=== PATIENT | male | born 1970 | race Caucasian/White ===

== ENCOUNTER 2024-10-05 11:12 | Inpatient (IN) | payer MEDICARE ==
[2024-10-05] MEDS ORDERED: MAGNESIUM HYDROXIDE 2,400 MG/30 ML CUP PO PRN (12:54)
[2024-10-05] MEDS ORDERED: ACETAMINOPHEN TAB 325 MG TAB PO PRN (12:54)
[2024-10-05] MEDS ORDERED: IBUPROFEN 600 MG TAB PO PRN (12:54)
[2024-10-05] MEDS ORDERED: MAG HYDROX/AL HYDROX/SIMETH 355 ML BOTTLE PO PRN (12:54)
[2024-10-05] MEDS ORDERED: HALOPERIDOL LACTATE 5 MG/ML 1 ML VIAL IM PRN (12:55)
[2024-10-05] MEDS ORDERED: LORazepam 2 MG/ML INJ IM PRN (12:55)
[2024-10-05] MEDS ORDERED: haloperidoL 5 MG TAB PO PRN (12:55)
[2024-10-05] MEDS: LORazepam 1 MG TAB PO PRN (15:26)
[2024-10-05] MEDS: HYDROcodone/APAP 5-325MG 1 EACH TAB PO PRN (16:11)
[2024-10-05] MEDS ORDERED: DEXTROSE 50% SYRINGE 50 ML IVP PRN ×2 (17:27)
[2024-10-05 17:30] LABS: Glucose,Whole Blood 305 mg/dL (70-110)
[2024-10-05] MEDS: INSULIN ASPART (NovoLOG) 100 UNIT/ML VIAL SQ SCH (17:46)
[2024-10-05] MEDS: metFORMIN 500 MG TAB PO SCH (17:48)
[2024-10-05] MEDS: NICOTINE GUM (POLACRILEX) 2 MG GUM BUCCAL PRN (18:54)
[2024-10-05] MEDS ORDERED: QUEtiapine 100 MG TAB PO SCH (21:00)
[2024-10-05 22:23] LABS: Glucose,Whole Blood 318 mg/dL (70-110)
[2024-10-06 07:30] LABS: Appearance,Urine Clear (Clear); Bilirubin,Urine Negative (Negative); Blood,Urine Negative (Negative); Color,Urine Colorless; Glucose,Urine (UA) 2+ (Negative); Ketones,Urine Negative (Negative); Leukocyte Esterase,Urine Negative (Negative); Nitrite,Urine Negative (Negative); Protein,Urine Negative (Negative); Specific Gravity,Urine 1.006 (1.001-1.035); Urobilinogen,Urine <2.0 mg/dL (<2.0)
[2024-10-06 07:49] LABS: Glucose,Whole Blood 217 mg/dL (70-110)
[2024-10-06 08:06] LABS: ALT 74 U/L (4-49); AST 51 U/L (17-59); African American GFR (CKD) >90 (>60 ml/min/1.73 sqM); Albumin 4.5 g/dL (3.5-5.0); Alkaline Phosphatase 97 U/L (38-126); Anion Gap 8 mmol/L; Blood Urea Nitrogen 10 mg/dL (9-20); Calcium 9.5 mg/dL (8.4-10.2); Carbon Dioxide 31 mmol/L (22-30); Chloride 97 mmol/L (98-107); Glucose 225 mg/dL (74-99); Non-African American GFR(CKD) >90 (>60 ml/min/1.73 sqM); Potassium 4.2 mmol/L (3.5-5.1); Sodium 136 mmol/L (137-145); Total Protein 7.6 g/dL (6.3-8.2)
[2024-10-06] MEDS: PARoxetine 10 MG TAB PO SCH (08:52)
[2024-10-06] MEDS: ARIPiprazole 5 MG TAB PO SCH (08:52)
[2024-10-06] MEDS ORDERED: SERTRALINE 100 MG TAB PO SCH (09:00)
[2024-10-06] MEDS: PARoxetine 10 MG TAB PO STA (11:37)
[2024-10-06 12:38] LABS: Glucose,Whole Blood 310 mg/dL (70-110)
[2024-10-06] MEDS ORDERED: hydrOXYzine HCL 25 MG TAB PO PRN (13:21)
--- NOTE | 2024-10-06 13:22 | P.HP ---
Psychiatric H&P - . H&P Date: 10/06/24 History & Physical: Allergies Allergy/AdvReac Type Severity Reaction Status Date / Time diphenhydramine Allergy Unknown Verified 10/05/24 12:14 From Benadryl pseudoephedrine Allergy Unknown Verified 10/05/24 12:14 From Sudafed quetiapine from Seroquel Allergy Unknown Verified 10/05/24 15:40 Vital Signs Temp 98.1 F 10/06/24 06:57 Pulse 86 10/06/24 06:57 Resp 18 10/06/24 06:57 BP 137/93 10/06/24 06:57 Pulse Ox 98 10/06/24 06:57 FiO2 Intake & Output 10/05/24 10/06/24 10/06/24 18:59 06:59 18:59 Weight 82.1 kg Laboratory Last Values Sodium 136 mmol/L (137-145) L 10/06/24 07:24 Potassium 4.2 mmol/L (3.5-5.1) 10/06/24 07:24 Chloride 97 mmol/L (98-107) L 10/06/24 07:24 Carbon Dioxide 31 mmol/L (22-30) H 10/06/24 07:24 Anion Gap 8 mmol/L 10/06/24 07:24 BUN 10 mg/dL (9-20) 10/06/24 07:24 Creatinine 0.84 mg/dL (0.66-1.25) 10/06/24 07:24 Est GFR (CKD-EPI)AfAm >90 (>60 ml/min/1.73 sqM) 10/06/24 07:24 Est GFR (CKD-EPI)NonAf >90 (>60 ml/min/1.73 sqM) 10/06/24 07:24 Glucose 225 mg/dL (74-99) H 10/06/24 07:24 POC Glucose (mg/dL) 310 mg/dL (70-110) H 10/06/24 12:36 POC Glu [employer] Pilot ID Satnam Whittaker 10/06/24 12:[address] Glu mg/dL 298 mg/dL 10/06/24 07:24 Hemoglobin A1c 12.0 % (<=6.0) H 10/06/24 07:24 Calcium 9.5 mg/dL (8.4-10.2) 10/06/24 07:24 Total Bilirubin 1.0 mg/dL (0.2-1.3) 10/06/24 07:24 AST 51 U/L (17-59) 10/06/24 07:24 ALT 74 U/L (4-49) H 10/06/24 07:24 Alkaline Phosphatase 97 U/L (38-126) 10/06/24 07:24 Total Protein 7.6 g/dL (6.3-8.2) 10/06/24 07:24 Albumin 4.5 g/dL (3.5-5.0) 10/06/24 07:24 TSH 3.500 mIU/L (0.465-4.680) 10/06/24 07:24 Urine Color Colorless 10/06/24 07:11 Urine Appearance Clear (Clear) 10/06/24 07:11 Urine pH 5.0 (5.0-8.0) 10/06/24 07:11 Ur Specific [place] 1.006 (1.001-1.035) 10/06/24 07:11 Urine Protein Negative (Negative) 10/06/24 07:11 Urine Glucose (UA) 2+ (Negative) H 10/06/24 07:11 Urine Ketones Negative (Negative) 10/06/24 07:11 Urine Blood Negative (Negative) 10/06/24 07:11 Urine Nitrite Negative (Negative) 10/06/24 07:11 Urine Bilirubin Negative (Negative) 10/06/24 07:11 Urine Urobilinogen <2.0 mg/dL (<2.0) 10/06/24 07:11 Ur Leukocyte Esterase Negative (Negative) 10/06/24 07:11 10/06/24 13:10 IDENTIFYING DATA: Patient is a 54-year-old single male, living with roommate and on disability CHIEF COMPLAINT: Suicidal ideations HPI: Patient presented to the hospital with worsening depression. EPS note states, "Transfer from [facility]. SI d/t finacial issues. Pt feels he is a threat to himself. He is not sleeping. No restraints. UDS neg. Labs were reviewed with pt has low platelets, According to [employer] pt runs from 85-118 in this year. Repeat BMP and CBC. Pt is DM and on sliding scale insulin lispro. Pts sugars are elevated runs 218, 289, 295, 391. VSS. Covid neg. UDS neg. Pt was given PO Ativan but this is a prescription for pt. No violence or aggression charted. Pt is having some knee pain, but able to complete all ADLs per charting and intake. No substance or ETOH use noted. Last etoh use was in 2018 per charting. Pts etoh was <10 on arrival to their [facility].". Patient seen and evaluated on the unit and was agreeable with speaking to comic writer in office. He states he has been dealing with depressive symptoms for the past 3 days that have worsened. Specifically he states experiencing sleep difficulties, anhedonia but denies any appetite or energy changes, hopelessness, concentration. He reports financial stressors and boredom as the primary triggers as he is "retired" and receives 1 check per month that must stretch the entire month. He states due to not working he is often bored and that this is what prompted the depression and suicidal thoughts. Patient denies any suicidal or homicidal ideations intent or plan. Reports anxiety directly related to financial stressors. At this time patient denies any auditory or visual hallucinations. Patient denies any flight of ideas racing thoughts and increased in goal directed behavior. Patient admits to using nicotine as needed PAST PSYCHIATRIC HISTORY: Patient has a history of depression, anxiety. Patient is currently prescribed Paxil 10 mg for the past year and he is also on Abilify 5 mg daily. He has tried Zoloft, trazodone, Seroquel previously. He reports "a few" inpatient hospitalizations, most recent reportedly in 2022 at [facility]. Patient denies any psychiatric outpatient follow-up. Patient denies any history of suicide attempts in the past. PMH: as per ER note ALLERGIES: as per EMR SUBSTANCE USE HISTORY: As per HPI FAMILY PSYCHIATRIC/SUBSTANCE USE HISTORY: Patient states his grandpa completed suicide SOCIAL HISTORY: Patient stays with a roommate, is single however has 2 daughters. He completed some college and is on disability. MENTAL STATUS EXAM: General Appearance: Patient appears to be stated age is alert, directable, and attempts to cooperate. Patient appears to have fair hygiene and grooming. He is balding Behavior: Patient is seated without any agitated behavior. Speech: Patient's speech is fluent and nonpressured. Mood/Affect: Patient reports their mood is depressed, affect is congruent and constricted. Suicidality/Homicidality: Patient denies having any homicidal ideation intent or plan. Denies any suicidal ideations intent or plan Perceptions: Patient denies any visual hallucinations and denies any auditory hallucinations Though content/process: There is no evidence of any delusional thought content and thought process is linear and logical. Memory and concentration: AOX3, grossly intact for the purposes of this session. Can spell "WORLD" backwards Judgment and insight: Fair STRENGTHS/WEAKNESSES: strength is that patient is resilient. Weakness is that patient has poor judgment and is impulsive INTELLECT: Average-below average IMPRESSIONS: Depression, unspecified Anxiety, unspecified Nicotine dependence PLAN: -Patient is admitted under voluntary status to MHU for stabilization of psychiatric symptoms and safety. Patient has signed adult voluntary form and medication consent and is placed in patient's chart. -Medications : Increase Paxil to 20 mg daily for depression/anxiety, start Remeron 7.5 mg at bedtime for sleep/mood, continue Abilify 5 mg daily for mood stabilization -Atarax and Haldol PRN for agitation/aggression -Patient was informed of the risks, benefits and side effects of the medication and patient verbally consented to taking the medications. Patient signed med consent form and was placed in chart. -Internal Medicine consult to perform medical evaluation and physical. -NRT -nicotine patch -SW on board for discharge planning. Encourage patient to participate in groups to work on coping skills.
[2024-10-06 17:38] LABS: Glucose,Whole Blood 229 mg/dL (70-110)
[2024-10-06] MEDS: MIRTAZAPINE 15 MG TAB PO SCH (19:59)
[2024-10-06 20:04] LABS: Glucose,Whole Blood 330 mg/dL (70-110)
[2024-10-07 06:51] VITALS: RESP 16
[2024-10-07 07:57] LABS: Glucose,Whole Blood 366 mg/dL (70-110)
[2024-10-07] MEDS: PARoxetine 20 MG TAB PO SCH (08:18)
[2024-10-07 12:05] VITALS: BMI 25.3
[2024-10-07 12:37] LABS: Glucose,Whole Blood 178 mg/dL (70-110)
--- NOTE | 2024-10-07 14:19 | P.CONS ---
History of Present Illness - Reason for Consult Consult date: 10/07/24 med management Requesting physician: Kenzie Irving - Chief Complaint depression - History of Present Illness Lucas is a 54-year-old male who presented to hospital for depression. The patient reports that he is a diabetic. He reports that his A1c was last checked a few months prior but reports he does not routinely get any lab work drawn. He reports that his PCP had discussed with him starting him on insulin. He reports that he feels of his most recent A1c was close to 8. He denies any history of high blood pressure. Past Medical History Past Medical History: Diabetes Mellitus, Hypertension Additional Past Medical History / Comment(s): Pt had right knee surgery but has to have another surgery soon. He needs a total knee replacement. History of Any Multi-Drug Resistant Organisms: None Reported Past Surgical History: Orthopedic Surgery Additional Past Surgical History / Comment(s): Right knee surgery Past Anesthesia/Blood Transfusion Reactions: No Reported Reaction Past Psychological History: No Psychological Hx Reported Smoking Status: Never smoker Past Alcohol Use History: None Reported Past Drug Use History: None Reported Medications and Allergies Home Medications Medication Instructions Recorded Confirmed Type ARIPiprazole [Abilify] 5 mg PO DAILY 10/05/24 10/05/24 History PARoxetine HCL [Paxil] 10 mg PO DAILY 10/05/24 10/05/24 History metFORMIN HCL [Glucophage] 1,000 mg PO BID 10/05/24 10/05/24 History traZODone HCL 100 mg PO HS 10/05/24 10/05/24 History Allergies Allergy/AdvReac Type Severity Reaction Status Date / Time diphenhydramine Allergy Unknown Verified 10/05/24 12:14 [From Benadryl] pseudoephedrine Allergy Unknown Verified 10/05/24 12:14 [From Sudafed] quetiapine [From Seroquel] Allergy Unknown Verified 10/05/24 15:40 Physical Exam Vitals: Vital Signs Temp Pulse Resp BP Pulse Ox 10/07/24 06:50 97.8 F 76 16 111/71 96 Intake and Output 10/06/24 10/07/24 10/07/24 22:59 06:59 14:59 Other: Weight 82.1 kg General: non toxic, no distress, male, appears stated age Derm: warm, dry Head: atraumatic, normocephalic, symmetric Eyes: EOMI, no lid lag, anicteric sclera, pupils equal round reactive to light ENT: Nose and ears atraumatic, no thrush, no pharyngeal erythema Neck: No thyromegaly, no cervical lymphadenopathy, trachea midline, supple Mouth: no lip lesion, mucus membranes moist Cardiovascular: S1S2 reg, no murmur, positive posterior tibial pulse bilateral, no edema Lungs: clear to ascultation bilateral, no ronchi, no rales, no wheeze, no accessory muscle use Abdominal: soft, nontender to palpation, no guarding, no appreciable organom egaly, normal bowel sounds Ext: no gross muscle atrophy, muscle strength muscle strength 5 out of 5 in all 4 extremities, no contractures Neuro: Moving all extremity spontaneously Psych: Calm Results CBC & Chem 7: 10/06/24 07:24 Labs: Abnormal Lab Results - Last 24 Hours (Table) 10/06/24 10/06/24 10/07/24 Range/Units 17:37 20:02 07:55 POC Glucose (mg/dL) 229 H 330 H 366 H (70-110) mg/dL 10/07/24 Range/Units 12:36 POC Glucose (mg/dL) 178 H (70-110) mg/dL Assessment and Plan Assessment: #) Dm2, appears to be poorly controlled given Am fasting blood glucose of 366. Continue metfomrin 1000 mg BID however add farxiga 5 mg daily. Continue low intensity sliding scale insulin while in inpatient [facility] and will f/u on a1c. I would be hesitant on discharging him on any long acting insulin, however pending a1c result may benefit from trulicity upon discharge from inpatient [facility] for optimal diabetic control. Check microalbumin and consider adding low dose acei/arb if evidence of microalbuminuria Thank you for allowing us to participate in the care of this patient. We will follow peripherally. Do not hesitate to contact us with questions. Someone can be reached from the [facility] hospitalist group at all hours of the day at [phone]. Time with Patient: Greater than 30
[2024-10-07] MEDS: DAPAGLIFLOZIN PROPANEDIOL 5 MG TABLET PO SCH (14:36)
--- NOTE | 2024-10-07 16:24 | P.PN ---
Progress Note - Text Interval History: Patient was seen in the hallway and was directable and agreeable to speak with service writer in the office. Reports having needed a "break from the environment" and attributes this to some of the improvement he is experienced in his mood. He is tolerating Paxil without any difficulty. His financial stress was one of the si gnificant challenges he faced prior to coming to the hospital and had been worrying about his circumstances. He described his mood as "really well" today and has been eating and finds to be Remeron helpful for sleep. At this time patient denies any suicidal or homicidal ideations, intent or plan. Patient denies any auditory, visual hallucinations and denies any paranoia or delusions. Patient denies any side effects from the medications and has been compliant with meds. We briefly discussed his elevated blood glucose which was 366 this morning; he explained that his PCP has plans to more aggressively manage his diabetes. Mental Status Exam: General Appearance: Patient appears to be stated age is alert, directable, and cooperative. Behavior: Patient is calmly seated without any agitated behavior. Speech: Patient's speech is fluent and nonpressured. Mood/Affect: Mood is "really well", affect is congruent and euthymic. Suicidality/Homicidality: Patient denies having any suicidal or homicidal ideation intent or plan. Perceptions: Patient denies any visual hallucinations and denies any auditory hallucinations Though content/process: There is no evidence of any delusional thought content and thought process is linear and goal-directed. Memory and concentration: AOX3, grossly intact for the purposes of this session Judgment and insight: Improving mildly Assessment: - Depression, unspecified - Anxiety, unspecified - Nicotine dependence PLAN: -Patient is admitted under voluntary status to MHU for stabilization of psychiatric symptoms and safety. Patient has signed adult voluntary form and medication consent and is placed in patient's chart. -Medications : - Continue Paxil 20 mg daily for depression/anxiety - Continue Remeron 7.5 mg at bedtime for sleep/mood - Continue Abilify 5 mg daily for mood stabilization -Atarax and Haldol PRN for agitation/aggression -Patient was informed of the risks, benefits and side effects of the medication and patient verbally consented to taking the medications. Patient signed med consent form and was placed in chart. -Internal Medicine consult to perform medical evaluation and physical. Completed today; patient's Diabetes management is being optimized. -NRT -nicotine patch -SW on board for discharge planning. Encourage patient to participate in groups to work on coping skills.
[2024-10-07 17:29] LABS: Glucose,Whole Blood 265 mg/dL (70-110)
[2024-10-07 20:12] LABS: Glucose,Whole Blood 216 mg/dL (70-110)
[2024-10-08 07:50] LABS: Glucose,Whole Blood 178 mg/dL (70-110)
[2024-10-08 11:44] LABS: Microalbumin Creatinine Ratio <32 mg/g Cr (0-30); Urine Creatinine 37.6 mg/dL (39.0-259.0)
[2024-10-08 12:36] LABS: Glucose,Whole Blood 177 mg/dL (70-110)
--- NOTE | 2024-10-08 14:18 | P.PN ---
Progress Note - Text Interval History: Patient was seen in the hallway and was directable and agreeable to speak with narrative writer in the office. Describes his mood today as "excellent." He slept well and said doesn't "think I need to stay much longer." He talked to a friend who is willing to give him some financial support while he awaits some anticipated income. Additionally, he is not as overwhelmed by his finances as he was prior to admission. He is looking forward to watching the [employer] play again, feels generally more upbeat about the future. Additionally, he has appreciated the addition of Remeron as it has improved his sleep. At this time patient denies any suicidal or homicidal ideations, intent, or plan. Patient denies any auditory, visual hallucinations and denies any paranoia or delusions. Patient denies any side effects from the medications and has been compliant with meds. Mental Status Exam: General Appearance: Patient appears to be stated age is alert, directable, and cooperative. Behavior: Patient is calmly seated without any agitated behavior. Speech: Patient's speech is fluent and nonpressured. Mood/Affect: Mood is "excellent", affect is congruent and euthymic, smiling. Bright. Suicidality/Homicidality: Patient denies having any suicidal or homicidal ideation intent or plan. Perceptions: Patient denies any visual hallucinations and denies any auditory hallucinations Though content/process: There is no evidence of any delusional thought content and thought process is linear and goal-directed. Memory and concentration: AOX3, grossly intact for the purposes of this session Judgment and insight: Improving Assessment: - Depression, unspecified - Anxiety, unspecified - Nicotine dependence PLAN: -Patient is admitted under voluntary status to MHU for stabilization of psychiatric symptoms and safety. Patient has signed adult voluntary form and medication consent and is placed in patient's chart. -Medications : - Continue Paxil 20 mg daily for depression/anxiety - Continue Remeron 7.5 mg at bedtime for sleep/mood - Continue Abilify 5 mg daily for mood stabilization -Atarax and Haldol PRN for agitation/aggression -Patient was informed of the risks, benefits and side effects of the medication and patient verbally consented to taking the medications. Patient signed med consent form and was placed in chart. -Internal Medicine consult to perform medical evaluation and physical. Patient's Diabetes management is being optimized. -NRT -nicotine patch -SW on board for discharge planning. Encourage patient to participate in groups to work on coping skills.
[2024-10-08 17:35] LABS: Glucose,Whole Blood 204 mg/dL (70-110)
[2024-10-08 19:56] LABS: Glucose,Whole Blood 339 mg/dL (70-110)
[2024-10-09 07:52] LABS: Glucose,Whole Blood 161 mg/dL (70-110)
[2024-10-09 12:35] LABS: Glucose,Whole Blood 275 mg/dL (70-110)
--- NOTE | 2024-10-09 12:50 | P.PN ---
Progress Note - Text Progress Note Date: 10/09/24 Interval History: Patient was seen wandering the hallways and was directable and agreeable to sp patience with loan underwriter in the office. He states feeling "great" today and expressed no concerns over the weekend. He feels like his medications are working effectively and he feels like he is close to ready for discharge. He states he is sleeping better now and denied any depressive or anxious symptoms today. States he lives with a roommate in [place] and that the roommate is okay with him returning back home with him. At this time patient denies any suicidal or homicidal ideations, intent or plan. Patient denies any auditory, visual hallucinations and denies any paranoia or delusions. Patient denies any side effects from the medications and has been compliant with meds. Mental Status Exam: General Appearance: Patient appears to be stated age is alert, directable, and cooperative. Behavior: Patient is calmly seated without any agitated behavior. Speech: Patient's speech is fluent and nonpressured. Mood/Affect: Mood is great", affect is congruent and full range. Suicidality/Homicidality: Patient denies having any suicidal or homicidal ideation intent or plan. Perceptions: Patient denies any visual hallucinations and denies any auditory hallucinations Though content/process: There is no evidence of any delusional thought content and thought process is linear and goal-directed. Memory and concentration: AOX3, grossly intact for the purposes of this session Judgment and insight: Improving mildly Assessment Depression, unspecified Anxiety, unspecified Nicotine dependence Plan: -Patient continues to meet criteria for inpatient psychiatric admission for symptom stabilization and safety. Patient has signed adult voluntary form and medication consent and was placed in patient's chart. -Medications: Continue Paxil 20 mg daily for depression/anxiety, Remeron 7.5 mg at bedtime for sleep/mood, Abilify 5 mg daily for mood stabilization -When necessary Atarax and Haldol for agitation/aggression. -Labs: Reviewed -NRT -nicotine patch -SW on board for discharge planning. Encouraged the patient to participate in milieu. Anticipate discharge back home with roommate tomorrow
[2024-10-09 17:29] LABS: Glucose,Whole Blood 351 mg/dL (70-110)
[2024-10-09 19:52] LABS: Glucose,Whole Blood 307 mg/dL (70-110)
[2024-10-10 07:08] VITALS: BP 116/76; PULSE 73; TEMP 97.9
[2024-10-10 07:49] LABS: Glucose,Whole Blood 252 mg/dL (70-110)
[2024-10-10 12:51] LABS: Glucose,Whole Blood 208 mg/dL (70-110)
--- NOTE | 2024-10-10 13:25 | P.DS ---
Providers Date of admission: 10/05/24 15:06 Expected date of discharge: 10/10/24 Attending physician: Kenzie Irving MD Consults: 10/05/24 12:54 Consult Physician Routine Consulting Provider: [facility] Consult Reason/Comments: H&P, diabetes Do you want consulting provider notified?: Yes Primary care physician: Physician Nonstaff - Discharge Diagnosis(es) (1) Depression, unspecified Current Visit: Yes Status: Acute Priority: High (2) Anxiety disorder, unspecified Current Visit: Yes Status: Acute Priority: High (3) Nicotine dependence Current Visit: Yes Status: Acute Priority: Low Hospital Course: Admission HPI: Admission note was completed by video games storywriter "Patient presented to the hospital with worsening depression. EPS note states, "Transfer from [facility]. SI d/t finacial issues. Pt feels he is a threat to himself. He is not sleeping. No restraints. UDS neg. Labs were reviewed with pt has low platelets, According to [employer] pt runs from 85-118 in this year. Repeat BMP and CBC. Pt is DM and on sliding scale insulin lispro. Pts sugars are elevated runs 218, 289, 295, 391. VSS. Covid neg. UDS neg. Pt was given PO Ativan but this is a prescription for pt. No violence or aggression charted. Pt is having some knee pain, but able to complete all ADLs per charting and intake. No substance or ETOH use noted. Last etoh use was in 2018 per charting. Pts etoh was <10 on arrival to their [facility].". Patient seen and evaluated on the unit and was agreeable with speaking to video games storywriter in office. He states he has been dealing with depressive symptoms for the past 3 days that have worsened. Specifically he states experiencing sleep difficulties, anhedonia but denies any appetite or energy changes, hopelessness, concentration. He reports financial stressors and boredom as the primary triggers as he is "retired" and receives 1 check per month that must stretch the entire month. He states due to not working he is often bored and that this is what prompted the depression and suicidal thoughts. Patient denies any suicidal or homicidal ideations intent or plan. Reports anxiety directly related to financial stressors. At this time patient denies any auditory or visual hallucinations. Patient denies any flight of ideas racing thoughts and increased in goal directed behavior. Patient admits to using nicotine as needed." Hospital course: Upon admission to the unit patient was directable and agreeable to commence treatment and signed adult voluntary form.. Patient got along well with other patients on the unit and followed unit protocol. Patient was compliant with the medications and denied any side effects throughout hospital course. Patient was started on Paxil and this was increased to 20 mg daily for depression/anxiety, Remeron 7.5 mg at bedtime for sleep/mood, Abilify continued at 5 mg daily for mood stabilization. Patient spoke of his stressors and engaged in therapy both group and individual. Patient was also seen by medical team for history and physical exam. Throughout the course of the hospitalization patient gradually improved with regards to mood, anxiety, sleep and returned back to their baseline level of functioning. On the day of discharge patient denied any suicidal or homicidal ideations intent or plan denied any auditory or visual hallucinations. The patient denied any access to guns or weapons. Patient denied any paranoia and did not endorse any delusions. Patient does not have a significant history of substance abuse and was counseled on abstaining from all substances including alcohol and marijuana. Patient was also counseled on the medications and need for regular compliance and was encouraged to follow-up with their outpatient appointment for mental health and also for primary care. Prior to discharge a family meeting will be arranged by social media sr strategy manager to answer any questions and ensure safety upon discharge incuding making sure that guns/weapons are either removed from the home or locked away. Patient to be discharged back home with roommate who confirmed no firearms at home, patient will follow-up with [facility]. Mental status exam: General Appearance: Patient appears to be stated age is alert, pleasant, and cooperative. Patient is in no acute distress and has improved hygiene and grooming. Male pattern balding Behavior: Patient is calmly seated without any agitated behavior. Speech: Patient's speech is fluent and nonpressured. Mood/Affect: Patient reports their mood is "good", affect is congruent and euthymic. Suicidality/Homicidality: Patient denies having any suicidal or homicidal ideation intent or plan. Perceptions: Patient denies any auditory or visual hallucinations. Though content/process: There is no evidence of any delusional thought content and thought process is linear and goal-directed. Memory and concentration: AOX3, grossly intact for the purposes of this session. Can spell "WORLD" backwards correctly. Judgment and insight: Good Impression: Depression, unspecified Anxiety, unspecified Nicotine dependence Plan: -Continue with discharge today as patient has improved and stabilized psychiatrically and is not currently an imminent threat to themself and/or others. -Continue medications: Paxil 20 mg daily, Remeron 7.5 mg at bedtime, Abilify 5 mg daily -Patient was counseled on the need for medication compliance and appropriate follow-up at mental health and also primary care for medical issues. Patient verbalized understanding and agreed. -Social work to help coordinate patients discharge today. also to ensure safe home environment that guns/weapons are either removed from the home or locked away. Social work also to arrange for patients follow up appointments with [facility] for psychiatric care along with follow up with primary care provider. -Patient counseled on abstaining from recreational drugs and marijuana and alcohol. Was informed/educated on the adverse effects on their physical and mental health. Patient verbally agreed and understood. -Patient was instructed to return to the hospital or seek immediate medical care if their psychiatric or medical symptoms do worsen or reoccur. Abnormal Labs 10/05/24 10/05/24 10/06/24 17:28 22:22 07:11 Sodium Chloride Carbon Dioxide Glucose POC Glucose (mg/dL) 305 H 318 H Hemoglobin A1c ALT Urine Glucose (UA) 2+ H U Creat (Microalbumin) Microalb/Creat Ratio 10/06/24 10/06/24 10/06/24 07:24 07:24 07:47 Sodium 136 L Chloride 97 L Carbon Dioxide 31 H Glucose 225 H POC Glucose (mg/dL) 217 H Hemoglobin A1c 12.0 H ALT 74 H Urine Glucose (UA) U Creat (Microalbumin) Microalb/Creat Ratio 10/06/24 10/06/24 10/06/24 12:36 17:37 20:02 Sodium Chloride Carbon Dioxide Glucose POC Glucose (mg/dL) 310 H 229 H 330 H Hemoglobin A1c ALT Urine Glucose (UA) U Creat (Microalbumin) Microalb/Creat Ratio 10/07/24 10/07/24 10/07/24 07:55 12:36 17:28 Sodium Chloride Carbon Dioxide Glucose POC Glucose (mg/dL) 366 H 178 H 265 H Hemoglobin A1c ALT Urine Glucose (UA) U Creat (Microalbumin) Microalb/Creat Ratio 10/07/24 10/08/24 10/08/24 20:11 03:04 07:48 Sodium Chloride Carbon Dioxide Glucose POC Glucose (mg/dL) 216 H 178 H Hemoglobin A1c ALT Urine Glucose (UA) U Creat (Microalbumin) 37.6 L Microalb/Creat Ratio <32 H 10/08/24 10/08/24 10/08/24 12:34 17:33 19:54 Sodium Chloride Carbon Dioxide Glucose POC Glucose (mg/dL) 177 H 204 H 339 H Hemoglobin A1c ALT Urine Glucose (UA) U Creat (Microalbumin) Microalb/Creat Ratio 10/09/24 10/09/24 10/09/24 07:51 12:33 17:26 Sodium Chloride Carbon Dioxide Glucose POC Glucose (mg/dL) 161 H 275 H 351 H Hemoglobin A1c ALT Urine Glucose (UA) U Creat (Microalbumin) Microalb/Creat Ratio 10/09/24 10/10/24 10/10/24 19:51 07:48 12:49 Sodium Chloride Carbon Dioxide Glucose POC Glucose (mg/dL) 307 H 252 H 208 H Hemoglobin A1c ALT Urine Glucose (UA) U Creat (Microalbumin) Microalb/Creat Ratio Vital Signs Temp 97.9 F 10/10/24 06:18 Pulse 73 10/10/24 06:18 Resp 16 10/10/24 06:18 BP 116/76 10/10/24 06:18 Pulse Ox 97 10/10/24 06:18 FiO2 Allergies Allergy/AdvReac Type Severity Reaction Status Date / Time diphenhydramine Allergy Unknown Verified 10/05/24 12:14 [From Benadryl] pseudoephedrine Allergy Unknown Verified 10/05/24 12:14 [From Sudafed] quetiapine [From Seroquel] Allergy Unknown Verified 10/05/24 15:40 Plan - Discharge Summary Discharge Rx Participant: Yes New Discharge Prescriptions: New Dapagliflozin Propanediol [Farxiga] 5 mg PO DAILY tab Nicotine Gum (Polacrilex) [Nicorette] 2 mg BUCCAL Q4HR PRN pieceofgum PRN Reason: Nicotine Cravings HYDROcodone/APAP 5-325MG [Sandstone 5-325] 1 each PO Q6HR PRN tab PRN Reason: Pain INSULIN ASPART (NovoLOG) [NovoLOG (formulary)] 0 unit SQ ACHS each PARoxetine [Paxil] 20 mg PO DAILY 30 Days #30 tab Mirtazapine [Remeron] 7.5 mg PO HS 30 Days #15 tab Continue metFORMIN HCL [Glucophage] 1,000 mg PO BID ARIPiprazole [Abilify] 5 mg PO DAILY 30 Days #30 tab Discontinued traZODone HCL 100 mg PO HS PARoxetine HCL [Paxil] 10 mg PO DAILY Discharge Medication List metFORMIN HCL [Glucophage] 1,000 mg PO BID 10/05/24 [History] ARIPiprazole [Abilify] 5 mg PO DAILY 30 Days #30 tab 10/10/24 [Rx] Dapagliflozin Propanediol [Farxiga] 5 mg PO DAILY tab 10/10/24 [Rx] HYDROcodone/APAP 5-325MG [Sandstone 5-325] 1 each PO Q6HR PRN tab 10/10/24 [Rx] INSULIN ASPART (NovoLOG) [NovoLOG (formulary)] 0 unit SQ ACHS each 10/10/24 [Rx] Mirtazapine [Remeron] 7.5 mg PO HS 30 Days #15 tab 10/10/24 [Rx] Nicotine Gum (Polacrilex) [Nicorette] 2 mg BUCCAL Q4HR PRN pieceofgum 10/10/24 [Rx] PARoxetine [Paxil] 20 mg PO DAILY 30 Days #30 tab 10/10/24 [Rx] Follow up Appointment(s)/Referral(s): [facility] [Outside] - 10/13/24 6:00 pm (Jennifer De La Vega 10/13 @ 18:00 please check email for directions for virtual appt. [facility]) [facility] [NON-STAFF] - 1 Week Patient Instructions/Handouts: How to Stop Smoking (DC), Depression (DC) Activity/Diet/Wound Care/Special Instructions: [facility] Discharge Info Avoid the use of street drugs and alcohol. Take all medications as prescribed. When you are in need of refills on your medications, please contact your outpatient medical provider and/or outpatient psychiatrist. Please go to your scheduled outpatient appointments for aftercare treatment. If symptoms return or become worse, call the crisis line at or and/or visit the nearest emergency room for assistance. National Suicide and Crisis Lifeline - call or text 988 Discharge Disposition: HOME SELF-CARE
== END 2024-10-10 14:50 | disposition home or self-care (01) | DRG 881 ==
LOC: 3MHU 15:06
PROVIDERS: ADMIT Psychiatry & Neurology Psychiatry; ATTEND Psychiatry & Neurology Psychiatry
DX: F32.A Depression, unspecified (principal); R45.851 Suicidal ideations; F41.9 Anxiety disorder, unspecified; I10 Essential (primary) hypertension; E11.65 Type 2 diabetes mellitus with hyperglycemia; F17.210 Nicotine dependence, cigarettes, uncomplicated; Z79.84 Long term (current) use of oral hypoglycemic drugs; Z79.899 Other long term (current) drug therapy; Z71.6 Tobacco abuse counseling; Z88.8 Allergy status to other drugs, medicaments and biological substances; Z96.659 Presence of unspecified artificial knee joint
CPT/HCPCS: 80053; 81003; 82043; 82570; 83036; 84443